=== PATIENT | female | born 1970 | race Two or more races ===

== ENCOUNTER 2019-05-31 04:19 | Emergency (ER) | payer OTHER ==
[2019-05-31 04:26] VITALS: TEMP 98.6; BMI 29.2
[2019-05-31] MEDS ORDERED: SODIUM CHLORIDE 1,000 ML IV STA (04:34)
[2019-05-31 04:57] LABS: BASO % 1.2 % (0-2.0); EOS % 1.4 % (0-4.5); HEMATOCRIT 45.4 % (32.4-45.2); HEMOGLOBIN 15.8 GM/dL (10.7-15.3); MCH 30.4 pg (25.7-33.7); MCHC 34.7 g/dl (32.0-36.0); MEAN CELL VOLUME 87.6 fl (80-96); NEUT % 49.4 % (42.8-82.8); PLATELET COUNT 295 K/MM3 (134-434); RBC 5.19 M/mm3 (3.60-5.2); RDW 17.5 % (11.6-15.6); WHITE BLOOD COUNT 6.9 K/mm3 (4.0-10.0)
--- NOTE | 2019-05-31 04:58 | PDOC ---
Attending Attestation - Resident Resident Name: Stiven Bacon - ED Attending Attestation I have performed the following: I have examined & evaluated the patient, The case was reviewed & discussed with the resident, I agree w/resident's findings & plan - HPI HPI: 05/31/19 19:45 Smoking hookah and drinking and danelle passed out. here for eval - Physicial Exam PE: 05/31/19 19:45 Normal exam. Alcohol intox. normal neuro exam HEENT normal A+Ox3 NAD Agree with resident exam - Medical Decision Making 05/31/19 05:58 Alcohol intox. Pt is stable to go home. 05/31/19 19:46 Friend who is sober will take her home
[2019-05-31 05:08] LABS: INR 1.03 (0.83-1.09); PROTHROMBIN TIME (PATIENT) 12.1 SEC (9.7-13.0)
--- NOTE | 2019-05-31 05:12 | PDOC ---
History of Present Illness - General Chief Complaint: Substance Abuse Stated Complaint: AMS Time Seen by Provider: 05/31/19 04:27 History Source: Patient Exam Limitations: No Limitations - History of Present Illness Initial Comments: 05/31/19 04:12 Kathryn Gentile is a 48F with no PMH presenting with acute onset abdominal pain in the setting of alcohol and hookah use. Patient is intoxicated and is not responding to questioning. Per patient's best friend in the room with her, she and patient were drinking beers and smoking hookah when the patient suddenly had lower abdominal pain while sitting. Denies loss of consciousness, fall, head trauma, N/V. Per patient's friend, no other drugs were used and they only had 3 beers. Past History - Past Medical History Allergies/Adverse Reactions: Allergies Allergy/AdvReac Type Severity Reaction Status Date / Time No Allergy Information Allergy Verified 05/31/19 04:32 Available - Psycho Social/Smoking Cessation Hx Smoking History: Unknown if ever smoked Have you smoked in the past 12 months: No Information on smoking cessation initiated: No Hx Alcohol Use: Yes Drug/Substance Use Hx: Yes Review of Systems - Review of Systems Able to Perform ROS?: No (intoxicated, not speaking) *Physical Exam - Vital Signs Last Vital Signs Temp Pulse Resp BP Pulse Ox 98.6 F 88 16 124/101 H 100 05/31/19 04:24 05/31/19 04:24 05/31/19 04:24 05/31/19 04:24 05/31/19 04:24 - Physical Exam General Appearance: Yes: Nourished, Appropriately Dressed, Intoxicated. No: Apparent Distress HEENT: positive: EOMI, NORTH, Normal ENT Inspection, Normal Voice, Symmetrical, Pharynx Normal, Other (no tenderness or lesions notable on the head). negative : Scleral Icterus (R), Scleral Icterus (L), Pharyngeal Erythema, Tonsillar Exudate, Tonsillar Erythema Neck: positive: Normal Thyroid, Supple. negative: Tender, Lymphadenopathy (R), Lymphadenopathy (L) Respiratory/Chest: positive: Lungs Clear, Normal Breath Sounds. negative: Respiratory Distress, Accessory Muscle Use, Crackles, Rales, Rhonchi Cardiovascular: positive: Regular Rhythm, Regular Rate. negative: Edema Vascular Pulses: Dorsalis-Pedis (R): 1+, Doralis-Pedis (L): 1+ Gastrointestinal/Abdominal: positive: Normal Bowel Sounds, Tender (suprapubic), Soft. negative: Organomegaly, Pulsatile Mass Musculoskeletal: positive: Normal Inspection. negative: CVA Tenderness Extremity: positive: Normal Capillary Refill, Normal Inspection, Normal Range of Motion. negative: Tender Integumentary: positive: Normal Color, Dry, Warm Neurologic: positive: Normal Mood/Affect, Normal Response, Responsive, Confused , Disoriented. negative: Fully Oriented, Alert ED Treatment Course - LABORATORY CBC & Chemistry Diagram: 05/31/19 04:38 05/31/19 04:38 - ADDITIONAL ORDERS Additional order review: Laboratory Results 05/31/19 04:38 PT with INR 12.10 INR 1.03 05/31/19 04:38 RBC 5.19 MCV 87.6 MCHC 34.7 RDW 17.5 H MPV 8.0 Neutrophils % 49.4 Lymphocytes % 42.0 H Monocytes % 6.0 Eosinophils % 1.4 Basophils % 1.2 Medical Decision Making - Medical Decision Making 05/31/19 04:12 Kathryn Gentile is a 48F with no PMH presenting with acute onset abdominal pain in the setting of alcohol and hookah use. Patient clinically intoxicated, unable to get full sentences or explanation about symptoms. Some suprapubic tenderness, no signs of trauma to body or head. Ddx includes gastritis vs. pancreatitis vs. alcohol poisoning. Will evaluate via: CMP CBC CP ECG lipase Coags UA/UC/UTOX Giving 1L NS for rehydration. 05/31/19 20:59 UTOX negative. Alcohol >250. Labs WNL. UA negative for UTI. Patient alert, oriented, still intoxicated, but able to corroborate same history as given by friend at bedside. Reports feeling much better, not feeling abdominal pain any more. Good to be discharged when clinically sober. 05/31/19 21:03 Discharge - Discharge Information Problems reviewed: Yes Clinical Impression/Diagnosis: Alcohol intoxication Qualifiers: Complication of substance-induced condition: uncomplicated Qualified Code(s): F10.920 - Alcohol use, unspecified with intoxication, uncomplicated Condition: Stable Disposition: HOME - Admission No - Follow up/Referral - Patient Discharge Instructions Patient Printed Discharge Instructions: DI for Alcohol Poisoning Additional Instructions: Today you were evaluated for pain in your stomach after smoking hookah and drinking alcohol. We gave you a liter of fluids and you felt better. You took blood labs and did not see any signs of infection or anemia. Your urine does not show signs of a urinary tract infection. Be mindful of drinking too much alcohol or smoking too much hookah in the future. Please see your primary doctor in the next 3 days for further care. If you experience weakness, chest pain, fever, dizziness, nausea, vomiting, or any other new or concerning symptoms, please return to the closest emergency room. - Post Discharge Activity
[2019-05-31 05:32] LABS: ALK PHOS 101 U/L (45-117); ANION GAP 12 MMOL/L (8-16); BILIRUBIN,TOTAL 0.2 mg/dL (0.2-1); CHLORIDE 107 mmol/L (98-107); CO2 23 mmol/L (21-32); CREATININE 0.6 mg/dL (0.55-1.3); GLUCOSE,RANDOM 121 mg/dL (74-106); POTASSIUM 3.9 mmol/L (3.5-5.1); SGOT/AST 19 U/L (15-37); SGPT/ALT 21 U/L (13-61); SODIUM 142 mmol/L (136-145); TOT PROT 7.9 g/dl (6.4-8.2)
[2019-05-31 05:50] LABS: COCAINE, UR NEGATIVE ng/ml (CUTOFF=300); METHADONE, UR NEGATIVE ng/ml (CUTOFF=300); OPIATES, URI NEGATIVE ng/ml (CUTOFF=300); PHENCYCLIDINE,URINE NEGATIVE ng/ml (CUTOFF=25); URINE AMPHETAMINES NEGATIVE ng/ml (CUTOFF=500); URINE APPEARANCE CLEAR; URINE BARBITURATES NEGATIVE ng/ml (CUTOFF=200); URINE BENZODIAZEPINES NEGATIVE ng/ml (CUTOFF=200); URINE BILIRUBIN NEGATIVE (NEGATIVE); URINE COLOR YELLOW; URINE GLUCOSE (UA) NEGATIVE (NEGATIVE); URINE KETONE NEGATIVE (NEGATIVE); URINE LEUK ESTERASE NEGATIVE (NEGATIVE); URINE NITRITE NEGATIVE (NEGATIVE); URINE PROTEIN NEGATIVE (NEGATIVE); URINE UROBILINOGEN 0.2 mg/dL (0.2-1.0)
[2019-05-31 06:20] VITALS: BP 111/83; PULSE 81
--- NOTE | 2019-05-31 16:47 | EKG ---
Test Reason : Blood Pressure : / mmHG Vent. Rate : 081 BPM Atrial Rate : 081 BPM P-R Int : 188 ms QRS Dur : 086 ms QT Int : 386 ms P-R-T Axes : 039 020 016 degrees QTc Int : 448 ms NORMAL SINUS RHYTHM T WAVE ABNORMALITY, CONSIDER ANTERIOR ISCHEMIA ABNORMAL ECG NO PREVIOUS ECGS AVAILABLE Confirmed by NAILA PARRISH MD ([id number]) on 05/31/2019 4:47:02 PM Referred By: Confirmed By:NAILA PARRISH MD
== END 2019-05-31 06:31 | disposition home or self-care (01) ==
LOC: JER 04:19
PROC: 3E0337Z Introduction of Electrolytic and Water Balance Substance into Peripheral Vein, Percutaneous Approach (ICD-10-PCS; principal; 2019-05-31)
DX: F10.220 Alcohol dependence with intoxication, uncomplicated (principal)
CPT/HCPCS: 36415; 80053; 80307; 81003; 82550; 83690; 84484; 84703; 85025; 85610; 87086; 93005; 93010; 96360; 99283-25; J7030

== ENCOUNTER 2021-05-06 14:05 | Observation (INO) | payer OTHER ==
[2021-05-06 14:56] VITALS: BMI 25.7
[2021-05-06] MEDS ORDERED: LIDOCAINE 5% TOPICAL PATCH TP ONE (15:18)
[2021-05-06] MEDS ORDERED: ACETAMINOPHEN 1000 MG/100 ML VIAL (NON FORMULARY) IVPB ONE (15:18)
[2021-05-06] MEDS ORDERED: LIDOCAINE 5% TOPICAL PATCH ONE (15:26)
[2021-05-06] MEDS ORDERED: ACETAMINOPHEN INJECTION 100 ML IVPB ONE (15:26)
[2021-05-06 15:40] LABS: BASO % 1.2 % (0-2.0); EOS % 2.5 % (0-4.5); HEMATOCRIT 46.5 % (32.4-45.2); LYMPH % 40.3 % (8-40); MCH 30.4 pg (25.7-33.7); MCHC 34.5 g/dl (32.0-36.0); MEAN CELL VOLUME 88.2 fl (80-96); MEAN PLT VOLUME 8.5 fl (7.5-11.1); MONO % 14.2 % (3.8-10.2); NEUT % 41.8 % (42.8-82.8); PLATELET COUNT 178 10^3/uL (134-434); RBC 5.28 M/mm3 (3.60-5.2); RDW 16.7 % (11.6-15.6); WHITE BLOOD COUNT 4.1 K/mm3 (4.0-10.0)
[2021-05-06 15:43] LABS: CHLORIDE 106 mmol/L (98-107); SODIUM 141 mmol/L (136-145)
[2021-05-06 15:45] LABS: ALBUMIN 3.7 g/dl (3.4-5.0); ANION GAP 9 MMOL/L (8-16); BLOOD UREA NITROGEN 4.1 mg/dL (7-18); CALCIUM 8.6 mg/dL (8.5-10.1); CO2 25 mmol/L (21-32); GLUCOSE,RANDOM 121 mg/dL (74-106); MAGNESIUM 1.6 mg/dL (1.8-2.4)
[2021-05-06 15:48] LABS: CREATININE 0.8 mg/dL (0.55-1.3); INR 1.08 (0.83-1.09); PROTHROMBIN TIME (PATIENT) 13.2 SEC (9.7-13.0); SGOT/AST 16 U/L (15-37); SGPT/ALT 16 U/L (13-61)
[2021-05-06 15:50] LABS: BILIRUBIN,TOTAL 0.6 mg/dL (0.2-1); TOT PROT 7.4 g/dl (6.4-8.2)
[2021-05-06 15:51] LABS: ACTIVATED PTT 24.8 SECONDS (25.2-36.5); ALK PHOS 79 U/L (45-117)
[2021-05-06] MEDS ORDERED: POTASSIUM CHLORIDE TABS 20 MEQ TABLET.ER (FP) PO ONE ×2 (16:29→16:51)
[2021-05-06] MEDS ORDERED: MAGNESIUM SULF 50% (8.12 MEQ/2 ML-1 GM VIAL) IVPB ONE (16:30)
[2021-05-06] MEDS ORDERED: KETOROLAC TROMETHAMINE 30 MG/1 ML VIAL IVPUSH ONE (16:42)
[2021-05-06] MEDS ORDERED: KETOROLAC TROMETHAMINE 30 MG/1 ML VIAL ONE (16:51)
[2021-05-06] MEDS ORDERED: MAGNESIUM SULFATE IN WATER 2 GM/50 ML IVPB IVPB ONE (16:51)
[2021-05-06] MEDS ORDERED: LACTATED RINGERS SOLUTION 1000 ML INFUS.BAG IV ONE (17:26)
[2021-05-06 18:19] LABS: URINE APPEARANCE CLEAR; URINE BILIRUBIN NEGATIVE (NEGATIVE); URINE COLOR YELLOW; URINE GLUCOSE (UA) NEGATIVE (NEGATIVE); URINE KETONE NEGATIVE (NEGATIVE); URINE LEUK ESTERASE NEGATIVE (NEGATIVE); URINE NITRITE NEGATIVE (NEGATIVE); URINE PROTEIN NEGATIVE (NEGATIVE); URINE UROBILINOGEN 0.2 mg/dL (0.2-1.0)
[2021-05-06] MEDS ORDERED: SODIUM CHLORIDE 1,000 ML IV SCH (19:15)
[2021-05-07] MEDS ORDERED: ACETAMINOPHEN 325 MG TABLET (FP) PO ONE (07:03)
[2021-05-07 08:06] LABS: HEMATOCRIT 41.6 % (32.4-45.2); MCH 30.1 pg (25.7-33.7); MCHC 33.7 g/dl (32.0-36.0); MEAN CELL VOLUME 89.4 fl (80-96); PLATELET COUNT 151 10^3/uL (134-434); RBC 4.65 M/mm3 (3.60-5.2); WHITE BLOOD COUNT 4.1 K/mm3 (4.0-10.0)
[2021-05-07 08:30] LABS: CHLORIDE 111 mmol/L (98-107); SODIUM 143 mmol/L (136-145)
[2021-05-07 08:35] LABS: ANION GAP 6 MMOL/L (8-16); BLOOD UREA NITROGEN 4.4 mg/dL (7-18); CALCIUM 7.8 mg/dL (8.5-10.1); CO2 26 mmol/L (21-32); GLUCOSE,RANDOM 84 mg/dL (74-106)
[2021-05-07 08:36] LABS: MAGNESIUM 1.9 mg/dL (1.8-2.4)
[2021-05-07 08:39] LABS: CREATININE 0.5 mg/dL (0.55-1.3); PHOSPHOROUS 2.7 mg/dL (2.5-4.9)
[2021-05-07] MEDS ORDERED: ENOXAPARIN NA (PORCINE) 40 MG/0.4 ML DISP.SYRIN SQ SCH (10:00)
[2021-05-07] MEDS ORDERED: CELECOXIB 200 MG CAPSULE PO ONE (14:42)
[2021-05-07] MEDS ORDERED: PT OWN MED DRAWER 7, Y5N ONE (15:21)
[2021-05-07 15:48] VITALS: BP 147/78; PULSE 51; TEMP 98.4
== END 2021-05-07 18:13 | disposition home or self-care (01) ==
LOC: JER 14:05 → JERBED 17:29 → J4W 05-07 02:39
PROVIDERS: ADMIT Internal Medicine; ATTEND Internal Medicine
PROC: 3E033NZ Introduction of Analgesics, Hypnotics, Sedatives into Peripheral Vein, Percutaneous Approach (ICD-10-PCS; principal; 2021-05-06)
PROC: 3E0337Z Introduction of Electrolytic and Water Balance Substance into Peripheral Vein, Percutaneous Approach (ICD-10-PCS; 2021-05-06)
PROC: 3E033GC Introduction of Other Therapeutic Substance into Peripheral Vein, Percutaneous Approach (ICD-10-PCS; 2021-05-06)
PROC: 3E0333Z Introduction of Anti-inflammatory into Peripheral Vein, Percutaneous Approach (ICD-10-PCS; 2021-05-06)
DX: F41.8 Other specified anxiety disorders (principal); R94.31 Abnormal electrocardiogram [ECG] [EKG]; R00.1 Bradycardia, unspecified; Z29.9 Encounter for prophylactic measures, unspecified; E87.6 Hypokalemia; E83.42 Hypomagnesemia; R55 Syncope and collapse; R07.89 Other chest pain; R42 Dizziness and giddiness
CPT/HCPCS: 36415; 71045-TC-FY; 71120-TC-FY; 80048; 80053; 80307; 81003; 82550; 83735; 84100; 84484; 84703; 85025; 85027; 85610; 85730; 87086; 93005; 93010; 96374; 96375; 99285-25; C9803; G0378; J0131; U0003; U0005

== ENCOUNTER 2023-02-23 21:39 | Observation (INO) | payer OTHER ==
[2023-02-23 21:57] VITALS: BMI 26.5
[2023-02-23] MEDS ORDERED: FAMOTIDINE 20 MG/50 ML IVPB 20 MG/50 ML MG IVPB ONE ×2 (22:57→23:10)
[2023-02-23] MEDS ORDERED: ACETAMINOPHEN 1000 MG/100 ML BAG IVPB ONE (22:57)
[2023-02-23] MEDS ORDERED: ONDANSETRON 4 MG/2 ML VIAL IVPUSH ONE (22:58)
[2023-02-23] MEDS ORDERED: SODIUM CHLORIDE 1,000 ML IV STA (22:59)
[2023-02-23] MEDS ORDERED: ONDANSETRON 4 MG/2 ML VIAL ONE (23:10)
[2023-02-23] MEDS ORDERED: ACETAMINOPHEN INJECTION 100 ML IVPB ONE (23:10)
[2023-02-23 23:51] LABS: BASO % 0.8 % (0-2.0); EOS % 0.6 % (0-4.5); HEMATOCRIT 48.8 % (32.4-45.2); HEMOGLOBIN 16.9 GM/dL (10.7-15.3); LYMPH % 30.8 % (8-40); MCH 30.7 pg (25.7-33.7); MCHC 34.6 g/dl (32.0-36.0); MEAN CELL VOLUME 88.9 fl (80-96); MEAN PLT VOLUME 8.3 fl (7.5-11.1); MONO % 5.2 % (3.8-10.2); NEUT % 62.6 % (42.8-82.8); PLATELET COUNT 226 10^3/uL (134-434); RBC 5.49 M/mm3 (3.60-5.2); RDW 14.9 % (11.6-15.6); WHITE BLOOD COUNT 7.3 K/mm3 (4.0-10.0)
[2023-02-23 23:56] LABS: INR 1.04 (0.83-1.09); PROTHROMBIN TIME (PATIENT) 12.1 SEC (9.7-13.0)
[2023-02-23 23:59] LABS: ACTIVATED PTT 26.5 SECONDS (25.2-36.5)
[2023-02-24 00:18] LABS: POTASSIUM 3.2 mmol/L (3.5-5.1)
[2023-02-24 00:20] LABS: ALBUMIN 4.2 g/dl (3.4-5.0); BLOOD UREA NITROGEN 8.3 mg/dL (7-18); CALCIUM 9.9 mg/dL (8.5-10.1); MAGNESIUM 1.6 mg/dL (1.8-2.4)
[2023-02-24] MEDS ORDERED: MAGNESIUM SULF 50% (8.12 MEQ/2 ML-1 GM VIAL) IVPB ONE (00:21)
[2023-02-24 00:23] LABS: CREATININE 0.8 mg/dL (0.55-1.3)
[2023-02-24] MEDS ORDERED: POTASSIUM CHLORIDE ORAL LIQUID 20 MEQ/15 ML PO ONE (00:24)
[2023-02-24 00:25] LABS: BILIRUBIN,TOTAL 0.6 mg/dL (0.2-1); TOT PROT 7.8 g/dl (6.4-8.2)
[2023-02-24] MEDS ORDERED: MAGNESIUM SULFATE IN WATER 2 GM/50 ML IVPB IVPB ONE (00:28)
[2023-02-24] MEDS ORDERED: POTASSIUM CHLORIDE ORAL LIQUID 20 MEQ/15 ML ONE (00:28)
[2023-02-24] MEDS ORDERED: KCL 10 MEQ IVPB 10 MEQ/100 ML INFUS.BAG IVPB SCH (00:30)
[2023-02-24] MEDS ORDERED: ONDANSETRON 4 MG/2 ML VIAL IVPUSH PRN (01:05)
[2023-02-24] MEDS: SODIUM CHLORIDE 1,000 ML IV SCH ×2 (02:00→12:36)
[2023-02-24] MEDS ORDERED: morphine CARPU-JECT 2 MG/1 ML DISP.SYRIN IVPUSH ONE (02:15)
[2023-02-24] MEDS ORDERED: KETOROLAC TROMETHAMINE 30 MG/1 ML VIAL IVPUSH ONE (02:47)
[2023-02-24] MEDS ORDERED: KETOROLAC TROMETHAMINE 15 MG/ML VIAL IVPUSH PRN (02:48)
[2023-02-24 07:06] LABS: BASO % 0.6 % (0-2.0); EOS % 1.1 % (0-4.5); HEMATOCRIT 43.1 % (32.4-45.2); HEMOGLOBIN 14.3 GM/dL (10.7-15.3); LYMPH % 39.2 % (8-40); MCH 30.5 pg (25.7-33.7); MCHC 33.3 g/dl (32.0-36.0); MEAN CELL VOLUME 91.5 fl (80-96); MEAN PLT VOLUME 8.8 fl (7.5-11.1); MONO % 6.1 % (3.8-10.2); PLATELET COUNT 179 10^3/uL (134-434); RDW 14.4 % (11.6-15.6); WHITE BLOOD COUNT 6.8 K/mm3 (4.0-10.0)
[2023-02-24 07:47] LABS: POTASSIUM 3.9 mmol/L (3.5-5.1)
[2023-02-24 07:52] LABS: CALCIUM 8.5 mg/dL (8.5-10.1)
[2023-02-24 07:53] LABS: BLOOD UREA NITROGEN 6.3 mg/dL (7-18); MAGNESIUM 2.2 mg/dL (1.8-2.4)
[2023-02-24 07:56] LABS: CREATININE 0.6 mg/dL (0.55-1.3)
[2023-02-24] MEDS ORDERED: risperiDONE 0.5 MG TABLET ONE (10:23)
[2023-02-24] MEDS ORDERED: ESCITALOPRAM OXALATE 10 MG TABLET ONE (10:24)
[2023-02-24] MEDS: risperiDONE 1 MG TABLET PO SCH (10:41)
[2023-02-24] MEDS: ESCITALOPRAM OXALATE 10 MG TABLET PO SCH (10:41)
[2023-02-24] MEDS ORDERED: MIRTAZAPINE 15 MG TABLET (FP) PO SCH (22:00)
[2023-02-24] MEDS ORDERED: ZOLPIDEM TARTRATE 5 MG TABLET PO PRN (22:00)
[2023-02-24] MEDS ORDERED: MIRTAZAPINE 15 MG TABLET (FP) ONE (23:18)
[2023-02-25] MEDS: SODIUM CHLORIDE 1,000 ML IV SCH (05:54)
[2023-02-25 07:39] VITALS: RESP 16
[2023-02-25] MEDS ORDERED: risperiDONE 0.5 MG TABLET ONE (09:33)
[2023-02-25] MEDS ORDERED: ESCITALOPRAM OXALATE 10 MG TABLET ONE (09:33)
[2023-02-25] MEDS: ESCITALOPRAM OXALATE 10 MG TABLET PO SCH (09:39)
[2023-02-25] MEDS: risperiDONE 1 MG TABLET PO SCH (09:39)
[2023-02-25] MEDS ORDERED: LACTATED RINGERS SOLUTION 1,000 ML/1,000 ML INFUS.BAG IV ONE (09:40)
[2023-02-25 14:42] VITALS: BP 105/81; PULSE 62; TEMP 98.1
== END 2023-02-25 15:45 | disposition home or self-care (01) ==
LOC: JER 21:39 → JERBED 02-24 00:41
PROVIDERS: ADMIT Internal Medicine; ATTEND Internal Medicine
PROC: 3E033NZ Introduction of Analgesics, Hypnotics, Sedatives into Peripheral Vein, Percutaneous Approach (ICD-10-PCS; principal; 2023-02-24)
PROC: 3E033GC Introduction of Other Therapeutic Substance into Peripheral Vein, Percutaneous Approach (ICD-10-PCS; 2023-02-24)
PROC: 3E0337Z Introduction of Electrolytic and Water Balance Substance into Peripheral Vein, Percutaneous Approach (ICD-10-PCS; 2023-02-24)
DX: E87.6 Hypokalemia (principal); E83.42 Hypomagnesemia; F32.9 Major depressive disorder, single episode, unspecified; R11.2 Nausea with vomiting, unspecified; F41.9 Anxiety disorder, unspecified; R19.7 Diarrhea, unspecified; R10.2 Pelvic and perineal pain
CPT/HCPCS: 0241U-QW; 36415; 73610-TC-RT-FY; 73630-TC-RT-FY; 80048; 80053; 83690; 83735; 84484; 85025; 85610; 85730; 87425; 87798; 93005; 93010; 96361; 96365; 96375; 96376; 99285-25; G0378

== ENCOUNTER 2024-03-05 16:40 | Emergency (ER) | payer OTHER ==
[2024-03-05 16:55] VITALS: BP 113/77; PULSE 74; RESP 18; TEMP 98; BMI 26.4
[2024-03-05 17:55] LABS: EPI CELLS 20 /uL (0-25.1); HYALINE CASTS 1 /uL (0-3.1); PH,URINE 6.5 (5.0-8.0); URINE APPEARANCE CLEAR; URINE BACTERIA 923 /uL (0-1359); URINE BILIRUBIN NEGATIVE (NEGATIVE); URINE COLOR YELLOW; URINE GLUCOSE (UA) NEGATIVE (NEGATIVE); URINE KETONE NEGATIVE (NEGATIVE); URINE LEUK ESTERASE 2+ (NEGATIVE); URINE NITRITE NEGATIVE (NEGATIVE); URINE PROTEIN NEGATIVE (NEGATIVE); URINE RBC 14 /uL (0-23.9); URINE UROBILINOGEN 4.0 E.U/dl mg/dL (0.2-1.0); URINE WBC 363 /uL (0-25.8)
[2024-03-05] MEDS: metroNIDAZOLE 250 MG TABLET PO ONE (18:23)
[2024-03-05] MEDS: NITROFURANTOIN MONOHYD/M-CRYST 100 MG CAPSULE PO ONE (18:23)
[2024-03-05] MEDS ORDERED: metroNIDAZOLE 250 MG TABLET ONE (18:23)
[2024-03-05] MEDS ORDERED: NITROFURANTOIN MACROCRYSTAL 50 MG CAPSULE (FP) ONE (18:23)
== END 2024-03-05 18:26 | disposition home or self-care (01) ==
LOC: JERFT 16:40
DX: N30.00 Acute cystitis without hematuria (principal); N76.0 Acute vaginitis; B96.89 Other specified bacterial agents as the cause of diseases classified elsewhere
CPT/HCPCS: 36415; 81003; 87070; 87086; 87186; 87205; 87491; 87591; 87661; 99283-25

== ENCOUNTER 2024-11-22 11:21 | Observation (INO) | payer OTHER ==
[2024-11-22 11:35] VITALS: BMI 27.4
[2024-11-22] MEDS ORDERED: MECLIZINE HCL 25 MG TABLET (FP) ONE (12:29)
[2024-11-22] MEDS: MECLIZINE HCL 25 MG TABLET (FP) PO ONE (12:44)
[2024-11-22 12:50] LABS: HEMATOCRIT 49.4 % (34.1-44.9); HEMOGLOBIN 16.2 g/dL (11.2-15.7); MCHC 32.8 g/dl (32.2-35.5); MEAN CELL VOLUME 91.7 fl (79.4-94.8); MEAN PLT VOLUME 9.6 fl (9.4-12.3); PLATELET COUNT 254 x10^3/uL (182-369)
[2024-11-22 13:09] LABS: POTASSIUM 3.2 mmol/L (3.5-5.1)
[2024-11-22 13:11] LABS: CALCIUM 8.8 mg/dL (8.5-10.1)
[2024-11-22 13:12] LABS: ALBUMIN 3.6 g/dl (3.4-5.0)
[2024-11-22 13:15] LABS: CREATININE 0.7 mg/dL (0.55-1.3)
[2024-11-22 13:16] LABS: BILIRUBIN,TOTAL 0.4 mg/dL (0.2-1)
[2024-11-22 13:17] LABS: TOT PROT 6.9 g/dl (6.4-8.2)
[2024-11-22] MEDS ORDERED: POTASSIUM CHLORIDE ORAL LIQUID 20 MEQ/15 ML ONE (13:59)
[2024-11-22] MEDS ORDERED: MAGNESIUM SULFATE IN WATER 2 GM/50 ML IVPB IVPB ONE (14:00)
[2024-11-22] MEDS: POTASSIUM CHLORIDE ORAL LIQUID 20 MEQ/15 ML PO ONE (14:13)
[2024-11-22] MEDS: MAGNESIUM SULF 50% (8.12 MEQ/2 ML-1 GM VIAL) IVPB ONE (14:13)
[2024-11-22] MEDS ORDERED: NITROGLYCERIN SUBLINGUAL 1/150 0.4 MG TAB SL PRN (19:27)
[2024-11-22] MEDS ORDERED: ASPIRIN 81 MG CHEWABLE TABLETS ONE (19:37)
[2024-11-22] MEDS: ASPIRIN 81 MG CHEWABLE TABLETS PO ONE (19:42)
[2024-11-22 20:02] LABS: HEMATOCRIT 49.8 % (34.1-44.9); HEMOGLOBIN 16.2 g/dL (11.2-15.7); MCHC 32.5 g/dl (32.2-35.5); MEAN CELL VOLUME 91.7 fl (79.4-94.8); MEAN PLT VOLUME 9.8 fl (9.4-12.3); PLATELET COUNT 278 x10^3/uL (182-369)
[2024-11-22 20:05] LABS: INR 1.15 (0.83-1.09); PROTHROMBIN TIME (PATIENT) 12.5 SEC (9.7-13.0)
[2024-11-22 20:07] LABS: ACTIVATED PTT 29.8 SECONDS (25.2-36.5)
[2024-11-22 20:17] LABS: CHLORIDE 107 mmol/L (98-107); POTASSIUM 3.7 mmol/L (3.5-5.1); SODIUM 142 mmol/L (136-145)
[2024-11-22 20:18] LABS: CALCIUM 8.8 mg/dL (8.5-10.1)
[2024-11-22 20:20] LABS: ALBUMIN 3.6 g/dl (3.4-5.0); ANION GAP 6 mmol/L (4-13); BLOOD UREA NITROGEN 3.2 mg/dL (7-18); CO2 29 mmol/L (21-32); GLUCOSE,RANDOM 142 mg/dL (74-106); MAGNESIUM 2.3 mg/dL (1.8-2.4)
[2024-11-22 20:23] LABS: CREATININE 0.8 mg/dL (0.55-1.3); SGOT/AST 19 U/L (15-37); SGPT/ALT 24 U/L (13-61)
[2024-11-22 20:24] LABS: BILIRUBIN,TOTAL 0.4 mg/dL (0.2-1); TOT PROT 6.9 g/dl (6.4-8.2)
[2024-11-22 20:26] LABS: ALK PHOS 90 U/L (45-117)
[2024-11-22] MEDS ORDERED: MIRTAZAPINE 15 MG TABLET (FP) ONE (21:38)
[2024-11-22] MEDS ORDERED: ATORVASTATIN CA 40 MG TABLET (FP) ONE (21:38)
[2024-11-22] MEDS: ATORVASTATIN CA 40 MG TABLET (FP) PO SCH (21:39)
[2024-11-22] MEDS: LIDOCAINE 4% PATCH TP SCH (21:40)
[2024-11-22] MEDS: MIRTAZAPINE 15 MG TABLET (FP) PO SCH (21:40)
[2024-11-22] MEDS ORDERED: TRIMETHOBENZAMIDE HCL 200MG/2ML INJ IM PRN (21:41)
[2024-11-22] MEDS: LIDOCAINE PATCH REMOVAL MC SCH (21:41)
[2024-11-22] MEDS ORDERED: LIDOCAINE 4% PATCH TP ONE (21:42)
[2024-11-22] MEDS ORDERED: ACYCLOVIR 400 MG TABLET PO SCH (22:00)
[2024-11-22 22:16] LABS: HIV INTERPRETATION NEGATIVE (NEGATIVE)
[2024-11-22 22:18] LABS: HCV DIAGNOSTIC IN-HOUSE W/RFLX NON-REACTIVE (NONREACTIVE)
[2024-11-22] MEDS: OLANZapine 5 MG TABLET PO SCH (22:33)
[2024-11-22] MEDS: SODIUM CHLORIDE 1,000 ML IV SCH (22:33)
[2024-11-22] MEDS: ACYCLOVIR 400 MG TABLET PO SCH (22:50)
[2024-11-22] MEDS: ACYCLOVIR 200 MG CAPSULE PO SCH (23:02)
[2024-11-23 06:54] LABS: ABSOLUTE IMMATURE GRANULOCYTES 0.02 x10^3/uL (0.0-0.031); BASOPHILS # 0.04 x10^3/uL (0.01-0.08); EOSINOPHIL % 2.3 % (0.7-5.8); EOSINOPHILS # 0.14 x10^3/uL (0.04-0.36); HEMOGLOBIN 14.4 g/dL (11.2-15.7); MEAN CELL VOLUME 93.2 fl (79.4-94.8); MEAN PLT VOLUME 9.8 fl (9.4-12.3); MONOCYTE # 0.39 x10^3/uL (0.24-0.86); MONOCYTE % 6.3 % (4.7-12.5); PLATELET COUNT 251 x10^3/uL (182-369); RDW 13.9 % (12.3-16.6)
[2024-11-23 07:26] LABS: POTASSIUM 3.6 mmol/L (3.5-5.1)
[2024-11-23 07:36] LABS: ALBUMIN 3.2 g/dl (3.4-5.0); CALCIUM 8.4 mg/dL (8.5-10.1)
[2024-11-23 07:37] LABS: BLOOD UREA NITROGEN 6.1 mg/dL (7-18); MAGNESIUM 2.1 mg/dL (1.8-2.4)
[2024-11-23 07:39] LABS: CREATININE 0.6 mg/dL (0.55-1.3)
[2024-11-23 07:40] LABS: BILIRUBIN,TOTAL 0.4 mg/dL (0.2-1); PHOSPHOROUS 4.7 mg/dL (2.5-4.9)
[2024-11-23] MEDS: ASPIRIN COATED 81 MG TABLET.EC PO SCH (11:10)
[2024-11-23] MEDS: ENOXAPARIN NA (PORCINE) 40 MG/0.4 ML DISP.SYRIN SQ SCH (11:15)
[2024-11-23] MEDS: MECLIZINE HCL 25 MG TABLET (FP) PO SCH (12:16)
[2024-11-23] MEDS: VENLAFAXINE HCL 75 MG E.R. CAPSULES PO SCH (12:51)
[2024-11-23] MEDS: SODIUM CHLORIDE 1,000 ML IV SCH (14:58)
[2024-11-24 07:49] LABS: HEMATOCRIT 42.4 % (34.1-44.9); HEMOGLOBIN 13.8 g/dL (11.2-15.7); MCHC 32.5 g/dl (32.2-35.5); MEAN CELL VOLUME 92.4 fl (79.4-94.8); MEAN PLT VOLUME 10.4 fl (9.4-12.3); PLATELET COUNT 246 x10^3/uL (182-369); RDW 13.6 % (12.3-16.6)
[2024-11-24 08:18] LABS: ALBUMIN 3.1 g/dl (3.4-5.0)
[2024-11-24 08:22] LABS: CALCIUM 8.4 mg/dL (8.5-10.1)
[2024-11-24 08:23] LABS: BLOOD UREA NITROGEN 6.5 mg/dL (7-18)
[2024-11-24 08:24] LABS: CREATININE 0.7 mg/dL (0.55-1.3)
[2024-11-24 08:27] LABS: BILIRUBIN,TOTAL 0.5 mg/dL (0.2-1); TOT PROT 5.9 g/dl (6.4-8.2)
[2024-11-24] MEDS ORDERED: REGADENOSON 0.4 MG/5 ML PRE-FILLED SYRINGE IVPUSH ONE (09:21)
[2024-11-24] MEDS: REGADENOSON 0.4 MG/5 ML PRE-FILLED SYRINGE IVPUSH ONE (10:00)
[2024-11-25 08:00] LABS: POTASSIUM 3.9 mmol/L (3.5-5.1)
[2024-11-25 08:10] LABS: CALCIUM 8.2 mg/dL (8.5-10.1)
[2024-11-25 08:11] LABS: ALBUMIN 3.1 g/dl (3.4-5.0); BLOOD UREA NITROGEN 7.2 mg/dL (7-18)
[2024-11-25 08:14] LABS: CREATININE 0.5 mg/dL (0.55-1.3)
[2024-11-25 08:16] LABS: BILIRUBIN,TOTAL 0.4 mg/dL (0.2-1)
[2024-11-25 10:03] LABS: HEMOGLOBIN 14.5 g/dL (11.2-15.7); MEAN CELL VOLUME 93.8 fl (79.4-94.8); MEAN PLT VOLUME 10.5 fl (9.4-12.3); PLATELET COUNT 261 x10^3/uL (182-369); RDW 13.3 % (12.3-16.6)
[2024-11-26 07:20] LABS: HEMOGLOBIN 15.1 g/dL (11.2-15.7); MCHC 32.8 g/dl (32.2-35.5); MEAN PLT VOLUME 10.2 fl (9.4-12.3); PLATELET COUNT 259 x10^3/uL (182-369); RDW 13.7 % (12.3-16.6)
[2024-11-26 07:46] LABS: ALBUMIN 3.4 g/dl (3.4-5.0); BLOOD UREA NITROGEN 10.6 mg/dL (7-18); CALCIUM 9.3 mg/dL (8.5-10.1)
[2024-11-26 07:49] LABS: CREATININE 0.7 mg/dL (0.55-1.3)
[2024-11-26 07:51] LABS: BILIRUBIN,TOTAL 0.5 mg/dL (0.2-1); TOT PROT 6.6 g/dl (6.4-8.2)
[2024-11-26] MEDS: SODIUM PHOSPHATE/NA BIPHOS 133 ML ENEMA RC ONE (11:10)
[2024-11-26 16:33] VITALS: BP 119/59; PULSE 58; RESP 18; TEMP 98.2
== END 2024-11-26 17:45 | disposition home health service (06) ==
LOC: JER 11:21 → JERBED 17:57 → J4W 22:09
PROVIDERS: ADMIT Hospitalist; ATTEND Internal Medicine
PROC: 3E023GC Introduction of Other Therapeutic Substance into Muscle, Percutaneous Approach (ICD-10-PCS; principal; 2024-11-22)
PROC: 3E033GC Introduction of Other Therapeutic Substance into Peripheral Vein, Percutaneous Approach (ICD-10-PCS; 2024-11-22)
PROC: 3E0337Z Introduction of Electrolytic and Water Balance Substance into Peripheral Vein, Percutaneous Approach (ICD-10-PCS; 2024-11-22)
DX: R42 Dizziness and giddiness (principal); R07.89 Other chest pain; F41.8 Other specified anxiety disorders; I10 Essential (primary) hypertension; F99 Mental disorder, not otherwise specified
CPT/HCPCS: 0241U-QW; 36415; 71045-TC-FY; 71046-TC-FY; 71275-TC; 72148-TC; 78452-TC; 80053; 82550; 83735; 84100; 84439; 84443; 84484; 85025; 85027; 85379; 85610; 85730; 86803; 87389; 93005; 93010; 93017; 93306-TC; 96361; 96372; 96374; 96375; 97116-GP; 97161-GP; 99285-25; A9502; G0378; J2785; Q9967